=== PATIENT | male | born 1980 | race Caucasian/White ===

== ENCOUNTER 2017-05-01 07:47 | Emergency (ER) | payer BC, OTHER ==
--- NOTE | 2017-05-01 08:15 | CPEKG ---
Heart Rate: 68 RR Interval: 882 P-R Interval: 132 QRSD Interval: 84 QT Interval: 376 QTC Interval: 400 P [place]: 32 QRS [place]: 15 T Wave [place]: 24 EKG Severity - NORMAL ECG - EKG Impression: SINUS RHYTHM Electronically Signed By: Shahram Lincoln 02-May-2017 07:20:46
[2017-05-01] MEDS ORDERED: ASPIRIN 81 MG CHEWABLE TAB PO ONE (08:32)
[2017-05-01] MEDS ORDERED: NS 500 ML IV ONE (08:32)
[2017-05-01] MEDS ORDERED: KETOROLAC 30 MG/1 ML SDV IVP ONE (08:34)
[2017-05-01 08:40] LABS: PLATELET COUNT 308 10^3/uL (150-400)
--- NOTE | 2017-05-01 08:44 | EDPHY ---
H & P Time Seen by Provider: 05/01/17 08:24 HPI/ROS: CHIEF COMPLAINT: Chest pain HISTORY OF PRESENT ILLNESS: Patient is a 37-year-old male with no cardiac history presents emergency department with left-sided chest pain starting after dinner last night at around 7:00 p.m.. His pain is been constant and persistent. It radiates into his left shoulder and behind his left scapula. The patient states he also has some mild left neck pain. It is worse when he turns his head to the right. This radiates the pain behind the scapula. He does not recall any injury. He has no shortness of breath. No nausea or vomiting. No diaphoresis. The patient has no family history of cardiac disease. REVIEW OF SYSTEMS: My complete review of systems is negative except as mentioned in the HPI. Past Medical/Surgical History: Includes herpes infection Social history: The patient drinks alcohol. He does not smoke or use drugs. Smoking Status: Never smoked Physical Exam: 36.6, 127/90, 76, 18, 97% on room air GENERAL: Well-appearing, in no acute distress, alert. HEENT: Eyes normal to inspection, normal pharynx, no signs of dehydration. NECK: No thyromegaly, no lymphadenopathy, supple. RESPIRATORY: Clear to auscultation bilaterally, no rales, rhonchi or wheezing. CVS: Regular rate and rhythm, no rubs, murmurs, or gallops. Chest wall: No chest wall tenderness palpation. No rash. ABDOMEN: Soft, nontender, nondistended, no organomegaly. BACK: Normal to inspection, no CVA tenderness. SKIN: Normal color, no rash, warm, dry. No pallor. EXTREMITIES: No pedal edema, no calf tenderness, no Homans sign or cords, no joint swelling. NEURO/PSYCH: Alert and oriented x3, normal mood and affect, normal motor sensory exam. No obvious cranial nerve deficit. Constitutional: Initial Vital Signs Temperature (C) 36.6 C 05/01/17 08:00 Heart Rate 76 05/01/17 08:00 Respiratory Rate 18 05/01/17 08:00 Blood Pressure 127/90 H 05/01/17 08:00 O2 Sat (%) 97 05/01/17 08:00 O2 Delivery Mode Room Air Allergies/Adverse Reactions: No Known Allergies Allergy (Unverified 05/21/10 21:34) Home Medications: Medication Instructions Recorded oxyCODONE/APAP 5/325MG PREPK#4 1 ea PO PRN 05/21/10 [Oxycodone/Acet] LYSINE 05/01/17 Medical Decision Making - Diagnostics Imaging Results: Imaging Impressions Chest X-Ray 05/01/17 08:32 IMPRESSION: Normal chest x-ray. ED Course/Re-evaluation: In the emergency department I discussed possible etiologies with the patient answered all his questions. Patient was given aspirin orally. Patient given Toradol 30 mg IV to treat his pain. Laboratory studies, EKG and chest x-ray were ordered. EKG shows normal sinus rhythm, normal rate, normal axis, normal intervals. There are no ST or T-wave abnormalities. EKG is normal as interpreted by me. Reviewed the patient's laboratory studies. His CBC and chemistry panel unremarkable. Troponin and D-dimer were negative. Chest x-ray normal. Please refer the dictated report. 936: I went and rechecked the patient. He was feeling better after receiving the Toradol. I discussed his laboratory results. He will follow up with Dr. Sharpe, his primary care provider. He is given warnings prior to leaving. He will return with worsening symptoms. Differential Diagnosis: My differential includes but is not limited to ACS, acute IA, dissection, aneurysm, pulmonary embolus, bronchitis, pneumonia, muscle strain, disc herniation, GERD, peptic ulcer disease, hiatal hernia - Data Points Laboratory Results: Laboratory Results 05/01/17 08:20 05/01/17 08:20 05/01/17 05/01/17 05/01/17 08:20 08:20 08:20 WBC 5.04 10^3/uL 10^3/uL (3.80-9.50) RBC 5.32 10^6/uL 10^6/uL (4.40-6.38) Hgb 17.6 g/dL H g/dL (13.7-17.5) Hct 50.8 % % (40.0-51.0) MCV 95.5 fL fL (81.5-99.8) MCH 33.1 pg pg (27.9-34.1) MCHC 34.6 g/dL g/dL (32.4-36.7) RDW 12.9 % % (11.5-15.2) Plt Count 308 10^3/uL 10^3/uL (150-400) MPV 10.2 fL fL (8.7-11.7) Neut % (Auto) 61.7 % % (39.3-74.2) Lymph % (Auto) 22.0 % % (15.0-45.0) Camp % (Auto) 9.9 % % (4.5-13.0) Eos % (Auto) 4.8 % % (0.6-7.6) Baso % (Auto) 1.2 % % (0.3-1.7) Nucleat RBC Rel Count 0.0 % % (0.0-0.2) Absolute Neuts (auto) 3.11 10^3/uL 10^3/uL (1.70-6.50) Absolute Lymphs (auto) 1.11 10^3/uL 10^3/uL (1.00-3.00) Absolute Monos (auto) 0.50 10^3/uL 10^3/uL (0.30-0.80) Absolute Eos (auto) 0.24 10^3/uL 10^3/uL (0.03-0.40) Absolute Basos (auto) 0.06 10^3/uL 10^3/uL (0.02-0.10) Absolute Nucleated RBC 0.00 10^3/uL 10^3/uL (0-0.01) Immature Gran % 0.4 % % (0.0-1.1) Immature Gran # 0.02 10^3/uL 10^3/uL (0.00-0.10) D-Dimer 0.28 ug/mLFEU ug/mLFEU (0.00-0.50) Sodium 144 mEq/L mEq/L (135-145) Potassium 4.2 mEq/L mEq/L (3.5-5.2) Chloride 106 mEq/L mEq/L (97-110) Carbon Dioxide 26 mEq/l mEq/l (22-31) Anion Gap 12 mEq/L mEq/L (8-16) BUN 19 mg/dL mg/dL (7-23) Creatinine 1.0 mg/dL mg/dL (0.7-1.3) Estimated GFR > 60 Glucose 93 mg/dL mg/dL (70-100) Calcium 9.7 mg/dL mg/dL (8.5-10.4) Troponin I < 0.012 ng/mL ng/mL (0.000-0.034) Medications Given: Discontinued Medications Aspirin (Aspirin) 324 mg PO EDNOW ONE Stop: 05/01/17 08:33 Last Admin: 05/01/17 08:38 Dose: 324 mg Sodium Chloride (Ns) 500 mls @ 1,000 mls/hr IV EDNOW ONE PRN Reason: Protocol Stop: 05/01/17 09:01 Last Admin: 05/01/17 08:38 Dose: 500 mls Ketorolac Tromethamine (Toradol) 30 mg IVP EDNOW ONE Stop: 05/01/17 08:35 Last Admin: 05/01/17 08:38 Dose: 30 mg Departure - Departure Disposition: Home, Routine, Self-Care Clinical Impression: Chest pain Qualifiers: Chest pain type: unspecified Qualified Code(s): R07.9 - Chest pain, unspecified Condition: Good Instructions: Chest Pain (ED) Additional Instructions: Your laboratory studies, EKG and chest x-ray were unremarkable. Return to the ER if you have increasing pain, shortness of breath, or any other concerns. You need follow-up with primary care physician. Referrals: Bertrand Sharpe [Primary Care Provider] - 3-4 days, if not improved
[2017-05-01 09:46] VITALS: BP 115/81; PULSE 67; RESP 16; TEMP 97.5; O2SAT 98
== END 2017-05-01 09:45 | disposition home or self-care (01) ==
DX: R07.9 Chest pain, unspecified (principal)
CPT/HCPCS: 96374; J1885